=== PATIENT | female | born 1960 | race Caucasian/White ===

== ENCOUNTER 2017-07-31 08:40 | Emergency (ER) | payer BC, OTHER ==
[2017-07-31 08:59] VITALS: BP 123/74
--- NOTE | 2017-07-31 09:09 | UC ---
Abdominal Pain Female HPI - HPI Summary HPI Summary: VOMITING AND DIARRHEA X 2 DAYS + ABDOMINAL PAIN NO FEVER, NO CHILLS, NO DYSURIA - History of Current Complaint Chief Complaint: UCGI Stated Complaint: VOMITING, DIARRHEA Time Seen by Provider: 07/31/17 08:57 Hx Obtained From: Patient Hx Last Menstrual Period: 3 mos ago Onset/Duration: Gradual Onset, Lasting Days - 2, Still Present Severity Initially: Moderate Severity Currently: Moderate Pain Intensity: 3 Location: Diffuse Radiates: No Character: Cramping Aggravating Factor(s): Food Alleviating Factor(s): Nothing Associated Signs and Symptoms: Positive: Nausea, Vomiting, Diarrhea. Negative: Diaphoresis, Cough, Chest Pain, Dizzy, Back Pain, Constipation, Blood in Stool, Urinary Symptoms, Decreased Appetite, Vaginal Bleeding, Vaginal Discharge Allergies/Adverse Reactions: Allergies Allergy/AdvReac Type Severity Reaction Status Date / Time iodine dye Allergy Swelling Uncoded 08/06/12 11:53 Home Medications: Home Medications Bismuth Subsalicylate [Pepto-Bismol Max Strength] 525 mg PO 07/31/17 [History] PMH/Surg Hx/FS Hx/Imm Hx Psychological History: Anxiety - Surgical History Surgical History: Yes Surgery Procedure, Year, and Place: t/a at age 5 yrs. Fallopian tube laparoscopy 1985. POLYPS REMOVED FROM [facility]. BLADDER BIOPSY - Family History Known Family History: Negative: Diabetes - Social History Alcohol Use: None Substance Use Type: None Smoking Status (MU): Heavy Every Day Tobacco Smoker Amount Used/How Often: 1/2 PPD Household Exposure Type: Cigarettes Review of Systems Constitutional: Negative Skin: Negative Eyes: Negative ENT: Negative Respiratory: Negative Gastrointestinal: Abdominal Pain, Vomiting, Diarrhea, Nausea Genitourinary: Negative Motor: Negative Is Patient Immunocompromised?: No All Other Systems Reviewed And Are Negative: Yes Physical Exam Triage Information Reviewed: Yes Appearance: Well-Appearing, No Pain Distress, Well-Nourished Vital Signs: Initial Vital Signs Temp 97.6 F 07/31/17 08:52 Pulse 78 07/31/17 08:52 Resp 20 07/31/17 08:52 BP 123/74 07/31/17 08:52 Pulse Ox 100 07/31/17 08:52 Vital Signs Reviewed: Yes Eye Exam: Normal Eyes: Positive: Conjunctiva Clear ENT: Positive: Normal ENT inspection, Hearing grossly normal, Pharynx normal Neck: Positive: Supple, Nontender, No Lymphadenopathy Respiratory: Positive: Chest non-tender, Lungs clear, Normal breath sounds, No respiratory distress Cardiovascular: Positive: RRR, No Murmur Abdominal Exam: Normal Abdomen Description: Positive: Nontender, No Organomegaly, Soft. Negative: Bruit, CVA Tenderness (R), CVA Tenderness (L), Distended, Guarding Bowel Sounds: Positive: Present Skin Exam: Normal Abd Pain Female Course/Dx - Differential Dx/Diagnosis Provider Diagnoses: GASTROENTERITIS Discharge - Sign-Out/Discharge Documenting (check all that apply): Discharge - Discharge Plan Condition: Stable Disposition: HOME Prescriptions: Ondansetron [Zofran Odt] 8 mg PO Q8H PRN #9 tab PRN Reason: Nausea/Vomiting Patient Education Materials: Gastroenteritis (ED) Forms: *Work Release Referrals: Сергей Hanson MD [Primary Care Provider] - If Needed - Billing Disposition and Condition Condition: STABLE Disposition: HOME
== END 2017-07-31 09:13 | disposition home or self-care (01) ==
LOC: UCCORT 08:40
DX: K52.9 Noninfective gastroenteritis and colitis, unspecified (principal); F17.210 Nicotine dependence, cigarettes, uncomplicated; Z91.041 Radiographic dye allergy status
CPT/HCPCS: 99201; G0463

== ENCOUNTER 2018-10-26 07:01 | Emergency (ER) | payer BC, OTHER ==
[2018-10-26 07:19] VITALS: BP 128/69
[2018-10-26] MEDS ORDERED: Penicillin VK TAB* 250 MG PO ONE (07:38)
--- NOTE | 2018-10-26 07:38 | UC ---
[facility] Dental HPI - HPI Summary HPI Summary: 58 yo female with right otalgia and jaw swelling x 2 day no f/c slight dentalgia 06/16 - History of Current Complaint Chief Complaint: UCDentalProblem Stated Complaint: DENTAL CONCERN Time Seen by Provider: 10/26/18 07:28 Hx Obtained From: Patient Hx Last Menstrual Period: 3 mos ago Onset/Duration: Sudden Onset, Lasting Days Severity: Mild Pain Intensity: 2 Pain Scale Used: 0-10 Numeric Aggravating Factor(s): Chewing Alleviating Factor(s): OTC Meds Related History: Swelling Dental: 1 - gum diffusely swollen no descrete abscess noted - Allergies/Home Medications Allergies/Adverse Reactions: Allergies Allergy/AdvReac Type Severity Reaction Status Date / Time iodine dye Allergy Swelling Uncoded 08/06/12 11:53 PMH/Surg Hx/FS Hx/Imm Hx Previously Healthy: Yes - Surgical History Surgical History: Yes Surgery Procedure, Year, and Place: t/a at age 5 yrs. Fallopian tube laparoscopy 1985. POLYPS REMOVED FROM [facility]. BLADDER BIOPSY - Family History Known Family History: Positive: Cardiac Disease - mo with [place] in her 70s Negative: Hypertension, Diabetes - Social History Alcohol Use: Occasionally Substance Use Type: None Smoking Status (MU): Heavy Every Day Tobacco Smoker Amount Used/How Often: 1/2 PPD Household Exposure Type: Cigarettes Review of Systems All Other Systems Reviewed And Are Negative: Yes Constitutional: Positive: Negative Skin: Positive: Negative Eyes: Positive: Negative ENT: Positive: Dental Pain, Ear Ache Respiratory: Positive: Negative Cardiovascular: Positive: Negative Gastrointestinal: Positive: Negative Genitourinary: Positive: Negative Motor: Positive: Negative Neurovascular: Positive: Negative Musculoskeletal: Positive: Negative Neurological: Positive: Negative Psychological: Positive: Negative Physical Exam Triage Information Reviewed: Yes Appearance: Well-Appearing, No Pain Distress, Well-Nourished Vital Signs: Initial Vital Signs Temp 98.5 F 10/26/18 07:14 Pulse 63 10/26/18 07:14 Resp 18 10/26/18 07:14 BP 128/69 10/26/18 07:14 Pulse Ox 100 10/26/18 07:14 Vital Signs Reviewed: Yes Eyes: Positive: Conjunctiva Clear ENT: Positive: Hearing grossly normal, TMs normal, Uvula midline. Negative: Nasal congestion, Nasal drainage, Tonsillar swelling, Tonsillar exudate, Trismus , Muffled voice, Hoarse voice, Sinus tenderness Dental: Positive: Other: - see image Neck: Positive: Supple, Enlarged Nodes @ - ant cerv Respiratory: Positive: Lungs clear, Normal breath sounds, No respiratory distress, No accessory muscle use Cardiovascular: Positive: RRR, No Murmur Musculoskeletal: Positive: ROM Intact, No Edema Neurological: Positive: Alert Psychological Exam: Normal Skin Exam: Normal Dental Complaint Course/Dx - Differential Dx/Diagnosis Provider Diagnosis: Apical abscess Discharge - Sign-Out/Discharge Documenting (check all that apply): Patient Departure All imaging exams completed and their final reports reviewed: No Studies - Discharge Plan Condition: Stable Disposition: HOME Referrals: Сергей Hanson MD [Primary Care Provider] - - Billing Disposition and Condition Condition: STABLE Disposition: Home
== END 2018-10-26 07:49 | disposition home or self-care (01) ==
LOC: UCCORT 07:01
DX: K04.7 Periapical abscess without sinus (principal); F17.210 Nicotine dependence, cigarettes, uncomplicated
CPT/HCPCS: 99212; A9270-GY; G0463